=== PATIENT | female | born 1990 | race Caucasian/White ===

== ENCOUNTER 2016-07-16 05:59 | Day surgery (SDC) | payer OTHER ==
[~2016-07-16] VITALS: Ht 162.6 cm; Wt 67.1 kg
[2016-07-16] MEDS ORDERED: CEFAZOLIN 1GM IVPB FOR OMNI 50 ML IV PRN (06:00)
[2016-07-16] MEDS ORDERED: IBUP200T77 PO (06:42)
[2016-07-16] MEDS ORDERED: [UNRECOGNIZED DRUG - CODE] PO (06:42)
[2016-07-16 06:49] LABS: NEG OBC UR NEG; POS OBC UR POS
[2016-07-16] MEDS ORDERED: PROCHLORPERAZINE 10 MG/2 ML VIAL. IV PRN (07:00)
[2016-07-16] MEDS ORDERED: FENTANYL PF 100 MCG/2 ML VIAL. IV PRN (07:00)
[2016-07-16] MEDS ORDERED: LIDOCAINE 1% 1 ML SYRINGE. ID PRN (07:00)
[2016-07-16] MEDS ORDERED: IV RINGERS,LACTATED 1000ML 1,000 ML IV SCH (07:00)
[2016-07-16] MEDS ORDERED: ONDANSETRON PF 4 MG/2 ML VIAL. IV PRN (07:00)
[2016-07-16] MEDS ORDERED: EPINEPHRINE 30 MG/30 ML VIAL. ONE (07:04)
[2016-07-16] MEDS ORDERED: LIDOCAINE 1% 20 ML VIAL. ONE (07:04)
[2016-07-16] MEDS ORDERED: BUPIVACAINE MPF 0.5% 30 ML VIAL. ONE (07:05)
[2016-07-16] MEDS ORDERED: FENTANYL PF 100 MCG/2 ML VIAL. ONE (07:10)
[2016-07-16] MEDS ORDERED: MIDAZOLAM HCL 2 MG/2 ML VIAL. ONE (07:10)
[2016-07-16] MEDS ORDERED: DEXAMETHASONE SOD PHOS 20 MG/5 ML VIAL. ONE (07:11)
[2016-07-16] MEDS ORDERED: PROPOFOL 20 ML IV ONE (07:11)
[2016-07-16] MEDS ORDERED: ONDANSETRON PF 4 MG/2 ML VIAL. ONE (07:11)
[2016-07-16] MEDS ORDERED: LIDOCAINE 2% 100 MG/5 ML DISP.SYRIN. ONE (07:11)
[2016-07-16] MEDS ORDERED: SEVOFLURANE 31 TO 60 MINUTES. IH ONE (07:11)
[2016-07-16] MEDS ORDERED: FAMOTIDINE 20 MG/2 ML VIAL ONE (07:12)
--- NOTE | 2016-07-16 07:22 | DISCH ---
DISCHARGE INSTRUCTIONS Condition on Discharge Condition on Discharge: Stable Activity After Discharge Activity Instructions for Disc: Other, see below Bathing Instructions: Shower-keep dressing dry Weight Bearing Status after Di: Non weight bearing Diet after Discharge Diet after Discharge: Regular Wound Incision Care Wound/Incision Care: Ice to area for comfort, Change dressing Contacting the [facility] after DC Call your doctor for: Concerns you may have Follow-Up Follow up with: Venita in 2wks LOUIS GARLAND II, MD Jul 16, 2016 07:22
--- NOTE | 2016-07-16 07:23 | PDOC ---
BRIEF OPERATIVE NOTE Date: Jul 16, 2016 Pre-Op Diagnosis R knee LM tear Post-Op Diagnosis same Surgeon Venita Enriquez Anesthesia Type: General LOUIS GARLAND II, MD Jul 16, 2016 07:23
[2016-07-16] MEDS ORDERED: KETOROLAC 30 MG/ML SYRINGE FOR OR. INJ ONE (07:31)
[2016-07-16] MEDS: FENTANYL PF 100 MCG/2 ML VIAL. IV PRN ×4 (08:22→08:39)
[2016-07-16] MEDS: MORPHINE SULFATE 2 MG/ML DISP.SYRIN. IV PRN ×2 (08:32→08:46)
[2016-07-16] MEDS ORDERED: ACETAMINOPHEN INTRAVENOUS 100 ML IV ONE ×2 (08:47→09:00)
[2016-07-16] MEDS: HYDROMORPHONE 2 MG/ML VIAL. IV PRN ×3 (09:03→09:24)
[2016-07-16] MEDS ORDERED: OXYC-323 PO (09:29)
[2016-07-16 09:30] VITALS: BP 104/60
[2016-07-16] MEDS ORDERED: OXYCODONE/APAP 5/325 TABLET. PO PRN (09:30)
--- NOTE | 2016-07-16 10:10 | OP ---
DATE OF SURGERY: 07/16/2016 SURGEON: Edwin Garland MD SPLITTING MACHINE TENDER: Karlie Enriquez. ANESTHESIA: General. PREOPERATIVE DIAGNOSIS: Right knee lateral meniscus tear. POSTOPERATIVE DIAGNOSIS: Right knee lateral meniscus tear. PROCEDURE PERFORMED: Right knee partial lateral meniscectomy. COMPLICATIONS: None. TOURNIQUET TIME: 34 minutes. ESTIMATED BLOOD LOSS: 5 mL. FINDINGS: 1. The patient had intact cartilage, patellofemoral articulation. 2. Medial meniscus was intact and stable. 3. No cartilage pathology of medial compartment. 4. ACL and PCL were intact. 5. Lateral compartment cartilage showed some softening at lateral tibial plateau. Otherwise, no pathology. 6. Lateral meniscus had a small, 3 mm, radial tear at its midportion. 7. Lateral meniscus also had the superficial fraying anteriorly. REASON FOR PROCEDURE: This patient is a very pleasant 26-year-old active female whose anterolateral knee pain had begun to bother her limited activities of daily living. Clinical and radiographic evidence were reviewed, which demonstrated lateral meniscus tear. A discussion of the risks, benefits, alternatives to proceeding with knee arthroscopy with lateral meniscal repair versus debridement and she elected to proceed. DESCRIPTION OF PROCEDURE: The patient was greeted in the preoperative area by myself. Correct extremity was marked and verified. She was taken to the operative suite and antibiotics were started en route. Once in the OR, she was transferred gently supine to the OR table and secured to the bed. She then had successful induction of general anesthesia. We then placed a nonsterile tourniquet to her right thigh as well as a bolster at her lateral hip and a bar cross the foot of the bed to maintain her knee in 90 degrees. After this, I conducted an examination under anesthesia, which demonstrated knees are stable to varus and valgus at 0 and 30 of flexion as well as a negative Willy with a solid endpoint and negative pivot shift. No pivot glide either. We then proceeded to prep and drape the right lower extremity in usual sterile fashion and then conducted a standard preoperative timeout. I palpated, marked surface anatomy and then made an incision for my standard anterolateral arthroscopic portal and introduced a blunt arthroscopic trocar into the knee joint, followed by the camera. I then conducted my diagnostic arthroscopy with the above noted findings. I did use a spinal needle to localize the anteromedial portal. I then took down the ligamentum mucosum and some of the anterolateral fat pad, taking care not to violate the intrameniscal ligament. I then placed her knee into [id number] positioning. Continue by diagnostic arthroscopy noted the small radial tear and debrided this with the shaver. I then inspected the anterior horn of the lateral meniscus and had some longitudinal fraying and it appeared as some of the superficial ____. The meniscal root was intact anterolaterally. I debrided some of the frayed fibers. After this, I used a probe in various positions of her knee to make sure that there was not a flipped and ____ in a piece of her meniscus, but noted nothing in the adjacent soft tissues. I then placed the camera and shaver in the suprapatellar pouch and aspirated and removed the remainder of the arthroscopic knee fluid. After this, I removed the arthroscopic instrumentation and closed the portals with a simple interrupted 2-0 nylon. Sterile dressing was then applied after the leg was cleansed and dried. The patient was awakened from anesthesia. She tolerated surgery well. Tourniquet was let down after dressing was applied. Postop plan is for her to weightbear as tolerated. She will refrain from sports for 4-6 weeks. I will follow up with her in clinic in approximately 2 weeks, sooner should problems arise. EDWIN GARLAND MD DR: SAMMIE/ji JOB#: [id number] / [id number]
== END 2016-07-16 10:10 | disposition home or self-care (01) ==
LOC: SURG 05:59
PROVIDERS: ATTEND Orthopaedic Surgery Sports Medicine
DX: S83.281A Other tear of lateral meniscus, current injury, right knee, initial encounter (principal); X58.XXXA Exposure to other specified factors, initial encounter; Y93.9 Activity, unspecified; Y92.9 Unspecified place or not applicable; Z72.89 Other problems related to lifestyle; Z86.14 Personal history of Methicillin resistant Staphylococcus aureus infection; Z87.39 Personal history of other diseases of the musculoskeletal system and connective tissue
CPT/HCPCS: 29881; 81025; C1782; J0131; J0171; J0690; J0780; J1100; J1170; J1885; J2250; J2270; J2405; J2704; J3010; J3490; S0028

== ENCOUNTER 2017-03-18 08:44 | Day surgery (SDC) | payer OTHER ==
[~2017-03-18] VITALS: Ht 162.6 cm; Wt 65.8 kg
[~2017-03-18 08:44] MED LIST: BUPIVACAINE MPF 0.5% 30 ML VIAL. ONE; EPINEPHrine VIAL 30 MG/30 ML VIAL ONE; HYDROmorphone 2 MG/ML VIAL IV PRN; IBUP200T77 PO; IV RINGERS,LACTATED 1000ML 1,000 ML IV SCH; LIDOCAINE 1% PF 2 ML VIAL. ID PRN; LIDOCAINE 1% PF 30 ML VIAL. ONE; MORPHINE SULFATE 2 MG/ML DISP.SYRIN. IV PRN; ONDANSETRON PF 4 MG/2 ML VIAL. IV PRN; OXYC-323 PO; [UNRECOGNIZED DRUG - CODE] PO; fentaNYL PF VIAL 100 MCG/2 ML VIAL IV PRN
[2017-03-18] MEDS ORDERED: LIDOCAINE 2% PF Vial for OR 5 ML VIAL. ONE (09:01)
[2017-03-18] MEDS ORDERED: fentaNYL PF VIAL 100 MCG/2 ML VIAL ONE ×2 (09:01→10:30)
[2017-03-18] MEDS ORDERED: PROPOFOL 20 ML IV ONE (09:01)
[2017-03-18 09:13] LABS: NEG OBC UR NEG; POS OBC UR POS
--- NOTE | 2017-03-18 09:30 | DISCH ---
DISCHARGE INSTRUCTIONS Condition on Discharge Condition on Discharge: Stable Activity After Discharge Activity Instructions for Disc: Other, see below Other activity instructions: knee brace to remin in place Bathing Instructions: Shower-keep dressing dry Weight Bearing Status after Di: Non weight bearing Diet after Discharge Diet after Discharge: Regular Wound Incision Care Wound/Incision Care: Ice to area for comfort, Keep wound/cast CDI, Change dressing Contacting the DR. after DC Call your doctor for: Concerns you may have Follow-Up Follow up with: Venita in 2 wks Treatment/Equipment after DC Adaptive Equipment Issued: LOUIS Frias II, MD Mar 18, 2017 09:30
--- NOTE | 2017-03-18 09:33 | PDOC ---
BRIEF OPERATIVE NOTE Date: Mar 18, 2017 Pre-Op Diagnosis R knee LM tear Post-Op Diagnosis same Procedure Performed R knee scope, LM repair Surgeon Venita Fish Grader Zoe Anesthesiologist Sherly Anesthesia Type: General, Local LOUIS GARLAND II, MD Mar 18, 2017 09:33
[2017-03-18] MEDS ORDERED: SEVOFLURANE 31 TO 60 MINUTES. IH ONE (10:13)
[2017-03-18] MEDS ORDERED: DEXAMETHASONE SOD PHOS 20 MG/5 ML VIAL. ONE (10:13)
[2017-03-18] MEDS ORDERED: ONDANSETRON PF 4 MG/2 ML VIAL. ONE (10:18)
[2017-03-18] MEDS: PROCHLORPERAZINE 10 MG/2 ML VIAL. IV PRN ×2 (11:35→12:08)
[2017-03-18] MEDS: fentaNYL PF VIAL 100 MCG/2 ML VIAL IV PRN ×2 (11:39→12:09)
[2017-03-18] MEDS ORDERED: oxyCODONE/APAP 5/325 1 TAB TABLET PO ONE (12:00)
[2017-03-18] MEDS ORDERED: OXYC-323 PO (12:01)
[2017-03-18] MEDS ORDERED: DOCU-109 PO (12:01)
[2017-03-18] MEDS ORDERED: ONDA4TAB10 SL (12:02)
--- NOTE | 2017-03-18 12:14 | OP ---
DATE OF SURGERY: 03/18/2017 SURGEON: Edwin Garland M.D. INVOICE CLASSIFICATION CLERK: Karlie Enriquez. ANESTHESIA: General plus local at the end. ESTIMATED BLOOD LOSS: 10 mL. PREOPERATIVE DIAGNOSIS: Right knee lateral meniscus tear. POSTOPERATIVE DIAGNOSIS: Right knee lateral meniscus tear. PROCEDURE PERFORMED: Arthroscopic outside-in lateral meniscus repair. FINDINGS: 1. The patient had a large amount of fraying at her anterior horn of the lateral meniscus and the horizontal tear through the red-red zone at the mid portion of the body. 2. Very small, less than 1 mm, radial tear. 3. Intact cartilage at medial and lateral compartment and patellofemoral joint. 4. Intact and stable medial meniscus. 5. Intact cruciate ligaments. COMPLICATIONS: None. REASON FOR PROCEDURE: The patient is a very pleasant 27-year-old female who had undergone initial partial lateral meniscectomy of some degenerative changes at her anterior horn with myself several months ago. She had gotten back to all of her activities, but developed recurrent pain. Therefore, we obtained an MRI after performing radiographic and clinical examination, which revealed the presence of the new tear. I had a discussion of the risks, benefits and alternatives with her to the above surgery and she elected to proceed. DESCRIPTION OF PROCEDURE: The patient was greeted in the preoperative area by myself. The correct extremity was marked and verified. She was taken to the operative suite and antibiotics were started en route. Once in the OR, transferred gently supine to the OR table and secured to the bed with all pressure points padded and had successful induction of general anesthetic. We then taped in place a nonsterile tourniquet to her right upper thigh, placed a padded bar cross foot of the bed and bolstered laterally in her hip to maintain her knee at 90 degrees. Examination under anesthesia revealed the knee that was stable to varus and valgus in extension and 30 degrees of flexion and negative Willy with a solid endpoint and negative pivot shift. After prepping and draping in our usual sterile fashion, we conducted our standard preoperative timeout. I then used an Esmarch to exsanguinate the extremity to 250 mmHg. I then palpated where my prior portals were and felt that these would work well. I, therefore, incised the skin through anterolateral portal site that had healed and introduced blunt arthroscopic trocar into the suprapatellar pouch followed by the camera. I then used a spinal to confirm my anteromedial portal was in a good position initially and incised the skin through this prior incision. I then introduced a probe and conducted my diagnostic arthroscopy with the above-noted findings. With her leg in the [id number] position, I used a shaver to carefully debride that very small radial tear at the mid portion of the body. I then inspected her tear with a probe. I then used the meniscal rasp through the tear to roughen up the boundaries of the tear. After this, I used the [employer] meniscal Mender needles to pass the wire loop through the meniscus x 2 for a mattress repairs anterolaterally and laterally at her meniscus. After this, I pulled gentle tension on these sutures and was happy with the repair. I then removed the camera and positioned her knee in 90 degrees of flexion with the freezer assistant holding her leg. I made a small incision between each pair of sutures and then retrieved these sutures out through the subcutaneous tissue with a probe. I reintroduced the camera in position of her leg in a [id number] position so I could tie these down under visualization of her meniscus to ensure I had a good tension. I then cut these limbs. I then probed the meniscus after placing the camera in the anterolateral portal and my probe through the anteromedial portal, which confirmed good meniscal stability. We then removed all excess arthroscopic fluid and arthroscopic instrumentation. The portals and small incisions were closed with simple interrupted 2-0 nylon. The leg was cleansed and dried. Sterile dressing was applied followed by a hinged knee brace set from 0-90. She was awakened from anesthesia, transferred gently supine to the recovery room cart and taken to PACU in a stable and extubated condition. Postoperative plan is nonweightbearing x 6 weeks. Her hinged knee brace will be in place from 0-90 degrees. She will follow up with me in clinic in 2 weeks, sooner should problems arise. EDWIN GARLAND MD DR: SAMMIE/ji JOB#: [id number] / [id number]
[2017-03-18 12:45] VITALS: BP 107/65
== END 2017-03-18 13:09 | disposition home or self-care (01) ==
LOC: SURG 08:44 → EDSTATUS 10:45 → SURG 13:09
PROVIDERS: ATTEND Orthopaedic Surgery Sports Medicine
DX: S83.281A Other tear of lateral meniscus, current injury, right knee, initial encounter (principal); X58.XXXA Exposure to other specified factors, initial encounter; Y93.89 Activity, other specified; Y92.89 Other specified places as the place of occurrence of the external cause; Z87.39 Personal history of other diseases of the musculoskeletal system and connective tissue; Z72.89 Other problems related to lifestyle
CPT/HCPCS: 29882; 81025; C1782; J0171; J0690; J0780; J1100; J2405; J2704; J3010; J3490; J2001

== ENCOUNTER → 2017-05-04 | Outpatient (CLI) | payer BC ==
[~2017-05-04] MED LIST changes: -BUPIVACAINE MPF 0.5% 30 ML VIAL. ONE; +DOCU-109 PO; -EPINEPHrine VIAL 30 MG/30 ML VIAL ONE; -HYDROmorphone 2 MG/ML VIAL IV PRN; -IV RINGERS,LACTATED 1000ML 1,000 ML IV SCH; -LIDOCAINE 1% PF 2 ML VIAL. ID PRN; -LIDOCAINE 1% PF 30 ML VIAL. ONE; -MORPHINE SULFATE 2 MG/ML DISP.SYRIN. IV PRN; +ONDA4TAB10 SL; -ONDANSETRON PF 4 MG/2 ML VIAL. IV PRN; -fentaNYL PF VIAL 100 MCG/2 ML VIAL IV PRN
--- NOTE | 2017-05-04 11:51 | RAD ---
Right lower extremity venous duplex ultrasound. 05/04/2017 11:47 AM Indication: USVEINRT/R LEG PAIN SWELLING recent surgery. Comparison study: None Discussion: Sonographic evaluation of the deep veins of the right lower extremity was performed. This includes grayscale imaging and color duplex imaging with spectral analysis. No evidence of deep venous thrombosis is seen. Interrogated veins are compressible and demonstrate augmentable blood flow and color Doppler imaging. Impression: No evidence of deep venous thrombosis involving the right lower extremity
== END | disposition home or self-care (01) ==
LOC: US 11:14
PROVIDERS: ATTEND Nurse Practitioner Gerontology
DX: M79.604 Pain in right leg (principal); M79.89 Other specified soft tissue disorders
CPT/HCPCS: 93971

== ENCOUNTER → 2017-08-24 | Outpatient (CLI) | payer OTHER | END | disposition home or self-care (01) | LOC: US 11:02 | DX: N92.1 Excessive and frequent menstruation with irregular cycle (principal) | CPT/HCPCS: 76830; 76856 ==